=== PATIENT | male | born 1935 | race Caucasian/White ===

== ENCOUNTER 2017-08-24 18:26 | Inpatient (IN) | payer OTHER ==
[~2017-08-24] VITALS: Ht 177.8 cm; Wt 83.3 kg
[~2017-08-24 18:26] MED LIST: DONE1TAB26 PO; DXY100 PO; HYDC25 PO; TIMO0.2528 OP; [UNRECOGNIZED DRUG - CODE] OPB
[2017-08-24] MEDS ORDERED: ALBUT/IPRATROP 3MG/0.5MG NEB 3 ML VIAL INH STA (18:44)
[2017-08-24] MEDS ORDERED: SODIUM CHLORIDE 0.9% 1000ML 2,000 ML IV STA (18:44)
[2017-08-24] MEDS ORDERED: CEFTRIAXONE SOD INJ 1 GM ADDVIAL IV STA (18:44)
[2017-08-24 19:13] LABS: BASO % 0.2 %; BASO ABS # 0.03 K/uL (0-0.2); EOS % 0.1 %; EOS ABS # 0.02 K/uL (0-0.5); HEMATOCRIT 44.3 % (42-52); HEMOGLOBIN 15.4 g/dL (14.0-18.0); IG# 0.07 K/uL (0.00-0.02); LYMPH % 7.9 %; LYMPH ABS # 1.22 K/uL (1.2-3.4); MEAN CELL VOLUME 89.1 fL (80-100); MEAN CORPUSCULAR HGB CONC 34.8 g/dl (32-36); MEAN PLATELET VOLUME 11.2 fL (7.4-10.4); MONO % 15.1 %; MONO ABS # 2.34 K/uL (0.11-0.59); NEUT % 76.2 %; NEUT ABS # 11.81 K/uL (1.4-6.5); PLATELET COUNT 121 K/uL (130-400); RED CELL DISTRIBUTION WIDTH CV 13.8 % (11.5-14.5); RED CELL DISTRIBUTION WIDTH SD 44.9 fL (36.4-46.3); WHITE BLOOD COUNT 15.49 K/uL (4.8-10.8)
[2017-08-24] MEDS ORDERED: SODIUM CHLORIDE 0.9% 500ML 500 ML IV STA (19:13)
--- NOTE | 2017-08-24 19:14 | DIAGNOSTIC IMAGING REPORT ---
CHEST ONE VIEW PORTABLE HISTORY: 82 years-old Male Evaluate Fever/Sepsis acute fever with sepsis COMPARISON: Chest radiograph 07/14/2014 TECHNIQUE: Portable AP view of the chest FINDINGS: Cardiac silhouette is mildly enlarged. Atherosclerosis of the aorta. Mild pulmonary vascular congestion with trace fluid layering along the right minor fissure. Trace right pleural effusion with hazy subsegmental left basilar opacities. No pneumothorax. Lungs are mildly hypoinflated with right hemidiaphragmatic elevation. Degenerative changes are seen within the shoulders and spine. IMPRESSION: 1. Cardiomegaly with mild pulmonary vascular congestion and trace right pleural effusion. 2. Subsegmental left basilar alveolar opacities suggest atelectasis or pneumonia. The above report was generated using voice recognition software. It may contain grammatical, syntax or spelling errors. Electronically signed by: Mike Guillen M.D. 08/24/2017 7:12 PM Dictated Date/Time: 08/24/2017 7:10 PM
[2017-08-24 19:15] LABS: PTT PATIENT 32.2 SECONDS (21.0-31.0)
[2017-08-24 19:36] LABS: CALCIUM 8.7 mg/dl (8.5-10.1); CREATININE 1.45 mg/dl (0.60-1.40); POTASSIUM 4.1 mmol/L (3.5-5.1)
[2017-08-24 19:42] LABS: CKMB 2.3 ng/ml (0.5-3.6); TOTAL PROTEIN 6.7 gm/dl (6.4-8.2)
[2017-08-24] MEDS ORDERED: CHOL100027 PO (19:56)
[2017-08-24] MEDS ORDERED: SIMV20TA5 PO (19:56)
[2017-08-24] MEDS ORDERED: ASPI81TA28 PO (19:56)
[2017-08-24] MEDS ORDERED: SAW160CA5 PO (19:56)
[2017-08-24] MEDS ORDERED: MULT-513 PO (19:56)
[2017-08-24] MEDS ORDERED: MISCCAP3 PO (19:56)
[2017-08-24] MEDS ORDERED: LISI-729 PO (19:56)
[2017-08-24 19:57] LABS: INFLUENZA B ANTIGEN Neg for Influ B (NEG)
[2017-08-24] MEDS ORDERED: XLTOPS OPB (20:10)
[2017-08-24] MEDS ORDERED: HYDR12.56 PO (20:10)
[2017-08-24] MEDS ORDERED: TMPOPS2510 OPB (20:10)
[2017-08-24] MEDS ORDERED: MEMA1TAB3 PO (20:10)
[2017-08-24] MEDS ORDERED: ARC10 PO (20:53)
[2017-08-24] MEDS ORDERED: OMEG10007 PO (20:53)
[2017-08-24] MEDS ORDERED: ACETAMINOPHEN 325 MG TAB PO PRN (21:30)
[2017-08-24] MEDS ORDERED: VANCOMYCIN IV 1,000 MG in SODIUM CHLORIDE 0.9% 250ML 250 ML IV STA ×2 (21:30→21:34)
[2017-08-24] MEDS ORDERED: VANCOMYCIN CONSULT ACTIVE PRN ×2 (21:30→21:45)
--- NOTE | 2017-08-24 21:34 | EMERGENCY ROOM VISIT NOTE ---
History Report prepared by Kg: Sirena Howell Under the Supervision of: Aretha GallagherO. First contact with patient: 18:30 Stated Complaint: SYNCOPE, History of Present Illness The patient is an 82 year old male who presents to the Emergency Room with complaints of persistent general fever of 101 Fahrenheit since this evening. Per nursing staff, the patient was found by family members in the bathroom. They report the patient did not know how long he was in the bathroom for. His blood glucose was 286. The patient has a cough and is weak. The patient has a history of dementia. HPI is limited secondary to dementia. Source of History: nursing staff History Limited By: dementia Onset: since this evening Position: other (general) Symptom Intensity: 101 Fahrenheit Quality: other (fever) Timing: other (persistent) Associated Symptoms: + cough, + weakness Review of Systems ROS is limited secondary to dementia. Past Medical & Surgical Medical Problems: (1) Delirium (2) Fall (3) Fall (4) Generalized weakness (5) PNA (pneumonia) (6) Sepsis (7) Sinus infection (8) SIRS (systemic inflammatory response syndrome) Family History Cancer Social History Smoking Status: Never Smoker Alcohol Use: none Drug Use: none Marital Status: Housing Status: lives with family Occupation Status: retired Current/Historical Medications Scheduled Aspirin (Aspirin Ec), 81 MG PO DAILY Cholecalciferol (Vitamin D 1000 Unit), 1,000 INTER.UNIT PO DAILY Donepezil HCl (Donepezil HCl), 10 MG PO DAILY Fish Oil ([place]-3), 1 CAP PO DAILY Hydrochlorothiazide (Hctz), 12.5 MG PO DAILY Latanoprost (Latanoprost), 1 DROP OPB HS Lisinopril (Zestril), 5 MG PO DAILY Memantine HCl (Memantine HCl), 5 MG PO BID Misc Natural Products (Pumpkin Seed Oil), 1 CAP PO DAILY Multivitamins/Minerals (Mvi With Minerals), 1 TAB PO DAILY Saw [place] ([place]ren[place] Repens) (Saw [place]), 1 TABS PO DAILY Simvastatin (Zocor), 20 MG PO QPM Timolol Maleate (Timolol Maleate), 1 DROP OPB BID Allergies Coded Allergies: Sulfamethoxazole w/Trimethoprim (Verified Allergy, Mild, 0, 07/14/14) sick, weakness Physical Exam Vital Signs Date Time Temp Pulse Resp B/P (MAP) Pulse Ox O2 Delivery O2 Flow Rate FiO2 08/24/17 21:00 98 24 98/74 94 Nasal Cannula 2.0 08/24/17 20:30 37.6 103 24 134/93 94 Nasal Cannula 2.0 08/24/17 20:17 112 08/24/17 20:00 105 24 102/59 94 Nasal Cannula 2.0 08/24/17 19:30 38.3 115 24 91/60 95 Nasal Cannula 2.0 08/24/17 19:00 121 24 87/62 96 Nasal Cannula 2.0 08/24/17 18:38 93 Nasal Cannula 3.0 08/24/17 18:38 93 Nasal Cannula 3.0 08/24/17 18:33 38.3 122 20 151/109 88 Room Air Physical Exam CONSTITUTIONAL/VITAL SIGNS: Reviewed / noted above. GENERAL: Non-toxic in appearance. INTEGUMENTARY: Warm, dry, and [place]. HEAD: Normocephalic. EYES: without scleral icterus or trauma. ENT/OROPHARYNX: clear and moist. LYMPHADENOPATHY/NECK: Is supple without lymphadenopathy or meningismus. RESPIRATORY: Diminished lung sounds in right base. CARDIOVASCULAR: Tachycardic rate and regular rhythm. GI/ABDOMEN: Soft and nontender. No organomegaly or pulsatile mass. No rebound or guarding. Normal bowel sounds. EXTREMITIES: Warm and well perfused. BACK: No CVA tenderness. NEUROLOGICAL: Intact without focal deficits. PSYCHIATRIC: normal affect. MUSCULOSKELETAL: Normally developed with good muscle tone. Medical Decision & Procedures ER Provider Diagnostic Interpretation: Radiology results as stated below per my review and radiologist interpretation: CHEST ONE VIEW PORTABLE HISTORY: 82 years-old Male Evaluate Fever/Sepsis acute fever with sepsis COMPARISON: Chest radiograph 07/14/2014 TECHNIQUE: Portable AP view of the chest FINDINGS: Cardiac silhouette is mildly enlarged. Atherosclerosis of the aorta. Mild pulmonary vascular congestion with trace fluid layering along the right minor fissure. Trace right pleural effusion with hazy subsegmental left basilar opacities. No pneumothorax. Lungs are mildly hypoinflated with right hemidiaphragmatic elevation. Degenerative changes are seen within the shoulders and spine. IMPRESSION: 1. Cardiomegaly with mild pulmonary vascular congestion and trace right pleural effusion. 2. Subsegmental left basilar alveolar opacities suggest atelectasis or pneumonia. The above report was generated using voice recognition software. It may contain grammatical, syntax or spelling errors. Electronically signed by: Mike Guillen M.D. 08/24/2017 7:12 PM Dictated Date/Time: 08/24/2017 7:10 PM Laboratory Results 08/24/17 17:45 Red Blood Count 4.97, Mean Corpuscular Volume 89.1, Mean Corpuscular Hemoglobin 31.0, Mean Corpuscular Hemoglobin Concent 34.8, Mean Platelet Volume 11.2, Neutrophils (%) (Auto) 76.2, Lymphocytes (%) (Auto) 7.9, Monocytes (%) (Auto) 15.1, Eosinophils (%) (Auto) 0.1, Basophils (%) (Auto) 0.2, Neutrophils # (Auto ) 11.81, Lymphocytes # (Auto) 1.22, Monocytes # (Auto) 2.34, Eosinophils # (Auto ) 0.02, Basophils # (Auto) 0.03 08/24/17 17:45 Test 08/24/17 17:45 08/24/17 18:56 08/24/17 19:00 08/24/17 20:30 White Blood Count 15.49 K/uL (4.8-10.8) Red Blood Count 4.97 M/uL (4.7-6.1) Hemoglobin 15.4 g/dL (14.0-18.0) Hematocrit 44.3 % (42-52) Mean Corpuscular Volume 89.1 fL (80-100) Mean Corpuscular Hemoglobin 31.0 pg (25-34) Mean Corpuscular Hemoglobin Concent 34.8 g/dl (32-36) Platelet Count 121 K/uL (130-400) Mean Platelet Volume 11.2 fL (7.4-10.4) Neutrophils (%) (Auto) 76.2 % Lymphocytes (%) (Auto) 7.9 % Monocytes (%) (Auto) 15.1 % Eosinophils (%) (Auto) 0.1 % Basophils (%) (Auto) 0.2 % Neutrophils # (Auto) 11.81 K/uL (1.4-6.5) Lymphocytes # (Auto) 1.22 K/uL (1.2-3.4) Monocytes # (Auto) 2.34 K/uL (0.11-0.59) Eosinophils # (Auto) 0.02 K/uL (0-0.5) Basophils # (Auto) 0.03 K/uL (0-0.2) RDW Standard Deviation 44.9 fL (36.4-46.3) RDW Coefficient of Variation 13.8 % (11.5-14.5) Immature Granulocyte % (Auto) 0.5 % Immature Granulocyte # (Auto) 0.07 K/uL (0.00-0.02) Prothrombin Time 11.0 SECONDS (9.0-12.0) Prothromb Time International Ratio 1.0 (0.9-1.1) Activated Partial Thromboplast Time 32.2 SECONDS (21.0-31.0) Partial Thromboplastin Ratio 1.2 Anion Gap 6.0 mmol/L (3-11) Est Creatinine Clear Calc Drug Dose 39.9 ml/min Estimated GFR () 51.2 Estimated GFR (Non- 44.2 BUN/Creatinine Ratio 15.2 (10-20) Calcium Level 8.7 mg/dl (8.5-10.1) Total Bilirubin 1.1 mg/dl (0.2-1) Direct Bilirubin 0.2 mg/dl (0-0.2) Aspartate Amino Transf (AST/SGOT) 28 U/L (15-37) Alanine Aminotransferase (ALT/SGPT) 30 U/L (12-78) Alkaline Phosphatase 75 U/L (45-117) Total Creatine Kinase 238 U/L (39-308) Creatine Kinase MB 2.3 ng/ml (0.5-3.6) Creatine Kinase MB Ratio 1.0 (0-3.0) Troponin I 0.015 ng/ml (0-0.045) Total Protein 6.7 gm/dl (6.4-8.2) Albumin 3.0 gm/dl (3.4-5.0) Lipase 132 U/L (73-393) Bedside Lactic Acid Venous 2.34 mmol/L (0.90-1.70) Influenza Type A Antigen Neg for Influ A (NEG) Influenza Type B Antigen Neg for Influ B (NEG) Urine Color DK YELLOW Urine Appearance CLEAR (CLEAR) Urine pH 5.0 (4.5-7.5) Urine Specific [place] 1.021 (1.000-1.030) Urine Protein 1+ (NEG) Urine Glucose (UA) NEG (NEG) Urine Ketones TRACE (NEG) Urine Occult Blood NEG (NEG) Urine Nitrite NEG (NEG) Urine Bilirubin NEG (NEG) Urine Urobilinogen NEG (NEG) Urine Leukocyte Esterase NEG (NEG) Urine WBC (Auto) 1-5 /hpf (0-5) Urine RBC (Auto) 0-4 /hpf (0-4) Urine Hyaline Casts (Auto) 10-30 /lpf (0-5) Urine Epithelial Cells (Auto) 5-10 /lpf (0-5) Urine Bacteria (Auto) NEG (NEG) Urine Pathogenic Casts 0-3 GRANULAR CASTS /lpf (0) Test 08/24/17 20:53 08/24/17 21:29 Laboratory results as stated above per my review. Medications Administered Medications (Trade) Dose Ordered Sig/Bharat Route Start Time Stop Time Status Last Admin Dose Admin Sodium Chloride 2,000 ml @ 999 mls/hr Q2H1M STAT IV 08/24/17 18:44 08/24/17 20:44 DC 08/24/17 19:09 999 MLS/HR Albuterol/ Ipratropium (Duoneb) 3 ml NOW STAT INH 08/24/17 18:44 08/24/17 18:49 DC 08/24/17 19:09 3 ML Ceftriaxone Sodium (Rocephin Inj) 1 gm NOW STAT IV 08/24/17 18:44 08/24/17 18:49 DC 08/24/17 19:25 1 GM Sodium Chloride 500 ml @ 999 mls/hr Q31M STAT IV 08/24/17 19:13 08/24/17 19:43 DC 08/24/17 19:25 999 MLS/HR ECG Per My Interpretation Indication: weakness Rate (beats per minute): 122 Rhythm: other (accelerated junctional ) Findings: no ectopy, other (No ST elevation) ED Course 183: Previous medical records were reviewed. The patient was evaluated in room B8. A complete history and physical examination was performed. 1844: Ordered Rocephin 1 gm IV, DuoNeb 3 ml INH, and Sodium Chloride 2,000 ml @ 999 mls/hr IV 3: Ordered Sodium Chloride 500 ml @ 999 mls/hr IV 2019: I spoke with Jade Garcia [facility]. We discussed the patient' s case. [facility]. 2026: I reassessed the patient at this time. I discussed the results and treatment plan with the patient and his family. I answered all pertaining questions that they had. They expressed understanding and verbalized agreement. The patient will be further evaluated. 2133: Vancomycin 1gm IV. Medical Decision Differentials include: Acute coronary syndrome, myocardial infarction, CVA, TIA , anemia, infection, pneumonia, UTI, pyelonephritis, poor nutrition, dehydration , electrolyte disturbance, and hypoglycemia. This is a 82-year-old male who presents to the ED with a chief complaint of a fever and weakness. The patient was found in the bathroom on the floor by the family and was transported here by EMS. The patient has some dementia and is a poor historian. The patient has recently had a cough. His temperature here was 38.3. His heart rate was 126. He was saturating 88-90% on room air. He does not use home oxygen. His blood pressure was mildly elevated. His physical exam revealed some diminished breath sounds on the right compared to the left. His exam also shows his tachycardia. Chest x-ray reveals left base pneumonia. EKG shows an accelerated junctional rhythm at a rate 122. No ST elevations. White blood cell count was 15.49. The BUN and creatinine are slightly elevated. Lactic acid is slightly elevated. Flu swab was negative. The patient was started on IV antibiotics. The patient was given 30 cc/kg of IV fluids. The patient will be seen by the hospitalist service for further inpatient evaluation and care. Medication Reconcilliation Current Medication List: was personally reviewed by me Blood Pressure Screening Patient's blood pressure: Low blood pressure monitored by hospitalist Consults Time Called: 2018 Consulting Physician: Jade Garcia [facility] I spoke with Jade Garcia. We discussed the patient's case. The patient will be [facility] for further management. Impression Primary Impression: PNA (pneumonia) Additional Impression: Sepsis Scribe Attestation The scribe's documentation has been prepared under my direction and personally reviewed by me in its entirety. I confirm that the note above accurately reflects all work, treatment, procedures, and medical decision making performed by me. Departure Information Dispostion Being Evaluated By Hospitalist Referrals Fabiano Gilbert MD (PCP) Problem Qualifiers
--- NOTE | 2017-08-24 21:44 | History and Physical ---
History & Physical Date & Time of Service: August 24, 2017 at 21:44 Chief Complaint: Fall Primary Care Physician: Adolfo Grider M.D. History of Present Illness Source: patient, clinic records, hospital records Patient is an 82-year-old male with a PMH of mixed Alzheimer's/vascular dementia , HTN, HLD, CKD III and h/o MRSA infections who presents after a fall at home. History obtained primarily from at bedside. Patient has had a cough and congestion since the beginning of July. Was seen in clinic on the and was diagnosed with complicated bronchitis and sent home with albuterol inhaler, prednisone taper and a 10 day course of doxycycline. Patient completed steroid and antibiotic last week and was feeling better. Per , patient has seemed fatigued the past 2 days and continued to have a mildly productive cough and generalized weakness. While patient was using the bathroom this afternoon, heard a loud thump and found patient lying on his side next to the toilet. Patient does not remember this incident. EMS was called and patient was brought to ED for further evaluation. In ED, patient found to have a fever of 101. Initially hypertensive at 181/109 and then hypotensive with SBP in the high 80s. Tachycardic at 122. Hypoxic ~88 -90% on room air. Does not require oxygen at home. Leukocytosis of 15.49 and lactic acid mildly elevated at 2.3. Aggressive IV fluid resuscitation administered. Chest x-ray with evidence of left lobe pneumonia versus atelectasis. Patient denies fever, chills, lightheadedness, dizziness, confusion, visual changes, chest pain, S OB, abdominal pain, nausea, pain, bowel or bladder changes or LE swelling. Past Medical/Surgical History Medical Problems: (1) Alzheimer's dementia Status: Chronic (2) Central sleep apnea Status: Chronic (3) CKD (chronic kidney disease) stage 3, GFR 30-59 ml/min Status: Chronic (4) Hyperlipidemia Status: Chronic (5) Hypertension Status: Chronic (6) Non Hodgkin's lymphoma Permanent Comment: s/p chemo in 2007 Status: Chronic (7) Vascular dementia Status: Chronic Surgical Problems: (1) S/P TURP (status post transurethral resection of prostate) Status: Resolved Social History Problems: (1) Delirium Status: Resolved Family History Cancer Social History Smoking Status: Never Smoker Alcohol Use: occasionally Drug Use: none Marital Status: Housing status: lives with significant other Occupational Status: retired Allergies Coded Allergies: Sulfamethoxazole w/Trimethoprim (Verified Allergy, Mild, 0, 07/14/14) sick, weakness Home Medications Scheduled Aspirin (Aspirin Ec), 81 MG PO DAILY Donepezil HCl (Donepezil HCl), 10 MG PO DAILY Fish Oil ([place]-3), 1 CAP PO DAILY Hydrochlorothiazide (Hctz), 12.5 MG PO DAILY Latanoprost (Latanoprost), 1 DROP OPB HS Lisinopril (Zestril), 5 MG PO DAILY Memantine HCl (Memantine HCl), 5 MG PO BID Misc Natural Products (Pumpkin Seed Oil), 1 CAP PO DAILY Multivitamins/Minerals (Mvi With Minerals), 1 TAB PO DAILY Saw [place] (Seren[place] Repens) (S[place]), 1 TABS PO DAILY Simvastatin (Zocor), 20 MG PO QPM Timolol Maleate (Timolol Maleate), 1 DROP OPB BID Review of Systems Ten systems reviewed and negative except as noted in the HPI. Physical Exam Vital Signs Date Time Temp Pulse Resp B/P (MAP) Pulse Ox O2 Delivery O2 Flow Rate FiO2 08/24/17 21:00 98 24 98/74 94 Nasal Cannula 2.0 08/24/17 20:30 37.6 103 24 134/93 94 Nasal Cannula 2.0 08/24/17 20:17 112 08/24/17 20:00 105 24 102/59 94 Nasal Cannula 2.0 08/24/17 19:30 38.3 115 24 91/60 95 Nasal Cannula 2.0 08/24/17 19:00 121 24 87/62 96 Nasal Cannula 2.0 08/24/17 18:38 93 Nasal Cannula 3.0 08/24/17 18:38 93 Nasal Cannula 3.0 08/24/17 18:33 38.3 122 20 151/109 88 Room Air General Appearance: WD/WN, no apparent distress, + pertinent finding (Non- toxic appearing ) Head: normocephalic, atraumatic Eyes: normal inspection, PERRL, sclerae normal ENT: normal ENT inspection, hearing grossly normal, pharynx normal (moist mucous membranes ) Neck: supple, thyroid normal, trachea midline Respiratory/Chest: chest non-tender, lungs clear, no respiratory distress, no accessory muscle use, + decreased breath sounds Cardiovascular: no murmur, normal peripheral pulses, + tachycardia Abdomen/GI: non tender, soft, no organomegaly Back: normal inspection Extremities/Musculoskelatal: normal inspection, no calf tenderness, no pedal edema Neurologic/Psych: no motor/sensory deficits, alert, normal mood/affect, oriented x 3 Skin: normal color, warm/dry Diagnostics Laboratory Results Results Past 24 Hours Test 08/24/17 17:45 08/24/17 18:56 08/24/17 19:00 08/24/17 19:20 Range/Units White Blood Count 15.49 4.8-10.8 K/uL Red Blood Count 4.97 4.7-6.1 M/uL Hemoglobin 15.4 14.0-18.0 g/dL Hematocrit 44.3 42-52 % Mean Corpuscular Volume 89.1 80-100 fL Mean Corpuscular Hemoglobin 31.0 25-34 pg Mean Corpuscular Hemoglobin Concent 34.8 32-36 g/dl Platelet Count 121 130-400 K/uL Mean Platelet Volume 11.2 7.4-10.4 fL Neutrophils (%) (Auto) 76.2 % Lymphocytes (%) (Auto) 7.9 % Monocytes (%) (Auto) 15.1 % Eosinophils (%) (Auto) 0.1 % Basophils (%) (Auto) 0.2 % Neutrophils # (Auto) 11.81 1.4-6.5 K/uL Lymphocytes # (Auto) 1.22 1.2-3.4 K/uL Monocytes # (Auto) 2.34 0.11-0.59 K/uL Eosinophils # (Auto) 0.02 0-0.5 K/uL Basophils # (Auto) 0.03 0-0.2 K/uL RDW Standard Deviation 44.9 36.4-46.3 fL RDW Coefficient of Variation 13.8 11.5-14.5 % Immature Granulocyte % (Auto) 0.5 % Immature Granulocyte # (Auto) 0.07 0.00-0.02 K/uL Prothrombin Time 11.0 9.0-12.0 SECONDS Prothromb Time International Ratio 1.0 0.9-1.1 Activated Partial Thromboplast Time 32.2 21.0-31.0 SECONDS Partial Thromboplastin Ratio 1.2 Sodium Level 133 136-145 mmol/L Potassium Level 4.1 3.5-5.1 mmol/L Chloride Level 101 98-107 mmol/L Carbon Dioxide Level 26 21-32 mmol/L Anion Gap 6.0 3-11 mmol/L Blood Urea Nitrogen 22 7-18 mg/dl Creatinine 1.45 0.60-1.40 mg/dl Est Creatinine Clear Calc Drug Dose 39.9 ml/min Estimated GFR () 51.2 Estimated GFR (Non- 44.2 BUN/Creatinine Ratio 15.2 10-20 Random Glucose 172 70-99 mg/dl Calcium Level 8.7 8.5-10.1 mg/dl Total Bilirubin 1.1 0.2-1 mg/dl Direct Bilirubin 0.2 0-0.2 mg/dl Aspartate Amino Transf (AST/SGOT) 28 15-37 U/L Alanine Aminotransferase (ALT/SGPT) 30 12-78 U/L Alkaline Phosphatase 75 45-117 U/L Total Creatine Kinase 238 39-308 U/L Creatine Kinase MB 2.3 0.5-3.6 ng/ml Creatine Kinase MB Ratio 1.0 0-3.0 Troponin I 0.015 0-0.045 ng/ml Total Protein 6.7 6.4-8.2 gm/dl Albumin 3.0 3.4-5.0 gm/dl Lipase 132 73-393 U/L Bedside Lactic Acid Venous 2.34 0.90-1.70 mmol/L Influenza Type A Antigen Neg for Influ A NEG Influenza Type B Antigen Neg for Influ B NEG Lactic Acid Level 2.3 0.4-2.0 mmol/L Test 08/24/17 20:30 08/24/17 20:53 08/24/17 21:29 Range/Units Urine Color DK YELLOW Urine Appearance CLEAR CLEAR Urine pH 5.0 4.5-7.5 Urine Specific [place] 1.021 1.000-1.030 Urine Protein 1+ NEG Urine Glucose (UA) NEG NEG Urine Ketones TRACE NEG Urine Occult Blood NEG NEG Urine Nitrite NEG NEG Urine Bilirubin NEG NEG Urine Urobilinogen NEG NEG Urine Leukocyte Esterase NEG NEG Urine WBC (Auto) 1-5 0-5 /hpf Urine RBC (Auto) 0-4 0-4 /hpf Urine Hyaline Casts (Auto) 10-30 0-5 /lpf Urine Epithelial Cells (Auto) 5-10 0-5 /lpf Urine Bacteria (Auto) NEG NEG Urine Pathogenic Casts 0-3 GRANULAR CASTS 0 /lpf Microbiology Results 08/24/17 Blood Culture, Received Pending 08/24/17 Blood Culture, Received Pending Diagnostic Radiology CXR: IMPRESSION: 1. Cardiomegaly with mild pulmonary vascular congestion and trace right pleural effusion. 2. Subsegmental left basilar alveolar opacities suggest atelectasis or pneumonia. EKG Accelerated Junctional rhythm with retrograde conduction Nonspecific ST and T wave abnormality Impression Assessment and Plan Patient is an 82-year-old male with a PMH of mixed Alzheimer's/vascular dementia , HTN, HLD, CKD III and h/o MRSA who presents after a fall at home. Sepsis 2/2 PNA: -Non-toxic appearing but meets SIRs criteria plus known source of infection -Febrile to 101, initially hypertensive at 181/109 and then hypotensive with SBP in the high 80s, HR ~ 122 -Hypoxic ~88-90% on room air. Does not require oxygen at home. Saturating appropriately on 2L NC -Leukocytosis of 15.49 -Lactic acid mildly elevated at 2.3 but repeat is normal at 1.6 -Normal procalcitonin -Aggressive IV fluid resuscitation administered -CXR with evidence of left lobe pneumonia versus atelectasis -Given 1 dose of rocephin and vanco in ED -Continue antibiotic coverage with zosyn -Blood cultures pending Unwitnessed fall: -Generalized weakness in setting of infection -Normally ambulates without assistance -No lightheadedness, near-syncope, chest pain -Fall precautions -Consider PT/OT eval HTN: -Hypotensive 2/2 infection -Continue IV fluids -Hold lisinopril Alzheimer's/vascular dementia: -Alert and pleasantly confused -Cont Aricept, Namenda, baby aspirin Thrombocytopenia: -Platelets at 121 -Previously ranged from 102-177 -SCDs HLD: -Cont statin CKD III: -Cr of 1.45, GFR of 44 -Baseline ~1.2, GFR in mid 50s -Monitor BMP Non-Hodgkin's lymphoma: -Observation -Chemo in 2007 H/o MRSA: - reports 2 remote cases of MRSA skin infections DVT Ppx: SCDs Code status: FULL PCP: Cheo Dispo: Admit to telemetry. Discharge planning ordered. Patient seen in collaboration with Dr. Joseph. Please see addendum. Attending Addendum Pt was seen and examined. Agreed with Rupa HYLTON, exam, assessment and plan. 82- year-old male with a PMH of mixed Alzheimer's/vascular dementia, HTN, HLD, CKD III and h/o MRSA infections was brought to the ER after a fall at home. Pt was seen about 2 weeks ago at PCP office for bronchitis. She was given doxycycline and prednisone and completed the course. For the last 2 days pt have been having a productive cough associated with generalized weakness. In the ER pt meets sepsis criteria with elevated lactic acid, tachycardia, elevated WBC and RR. CXR done in the ER showed subsegmental left basilar alveolar opacities. Received IVF in the ER and IV abx with Rocephine and Vanco. His BP dropped in the 90's systolic. We will start on Zosyn IV and if mrsa screen positive, will continue vanco. Gentle hydration for now since CXR showed mild pulmonary vascular congestion. Repeat lactic acid and CXR. Continue monitor closely. MD Opal Resuscitation Status VTE Prophylaxis Will order VTE Prophylaxis: Yes
[2017-08-24] MEDS ORDERED: VANCOMYCIN IV 1,750 MG in SODIUM CHLORIDE 0.9% 500ML 500 ML IV SCH (22:00)
[2017-08-24 22:29] LABS: INFLUENZA A PCR Neg for Influ A (NEG); INFLUENZA B PCR Neg for Influ B (NEG)
[2017-08-24 22:46] VITALS: BP 101/57; PULSE 97; TEMP 36.9; Ht 177.8 cm; Wt 83.3 kg
[2017-08-24] MEDS ORDERED: PIPERACILL/TAZOBAC CONSULT ACTIVE PRN (23:00)
[2017-08-24] MEDS ORDERED: SODIUM CHLORIDE 0.9% 1000ML 1,000 ML IV SCH (23:00)
[2017-08-24] MEDS ORDERED: PIPERACILL/TAZOBAC IV 3.375 GM in DEXTROSE 5% 100ML 100 ML IV ONE (23:00)
[2017-08-24 23:23] VITALS: PULSE 103; O2SAT 94
[2017-08-25] VITALS (8 sets, daily range): BP systolic 97–161; BP diastolic 64–84; PULSE 63–101; TEMP 36.4–37.4; O2SAT 91–98
[2017-08-25 04:25] LABS: HEMATOCRIT 38.1 % (42-52); HEMOGLOBIN 12.7 g/dL (14.0-18.0); MEAN CELL VOLUME 90.1 fL (80-100); MEAN CORPUSCULAR HGB CONC 33.3 g/dl (32-36); MEAN PLATELET VOLUME 10.4 fL (7.4-10.4); PLATELET COUNT 102 K/uL (130-400); RED CELL DISTRIBUTION WIDTH CV 13.8 % (11.5-14.5); RED CELL DISTRIBUTION WIDTH SD 45.2 fL (36.4-46.3); WHITE BLOOD COUNT 11.06 K/uL (4.8-10.8)
[2017-08-25 04:44] LABS: CALCIUM 7.7 mg/dl (8.5-10.1); CREATININE 1.18 mg/dl (0.60-1.40); POTASSIUM 3.9 mmol/L (3.5-5.1)
[2017-08-25] MEDS ORDERED: HEPARIN SOD 5000 UNIT/0.5 ML CARP SQ SCH (06:00)
[2017-08-25] MEDS: PIPERACILL/TAZOBAC IV 3.375 GM in DEXTROSE 5% 100ML 100 ML IV SCH ×3 (06:18→21:54)
[2017-08-25] MEDS ORDERED: CALCIUM GLUCONATE 10% 1,000 MG in SODIUM CHLORIDE 0.9% 50ML 50 ML IV STA (06:21)
--- NOTE | 2017-08-25 08:12 | DIAGNOSTIC IMAGING REPORT ---
CHEST ONE VIEW PORTABLE CLINICAL HISTORY: follow up x ray for pneumonia or fluid overload dyspnea COMPARISON STUDY: 08/24/2017 FINDINGS: Mild improvement from the prior exam. Findings of mild congestive failure persist. Infiltrative process left base is slightly improved. Infiltrative changes right base are stable. IMPRESSION: 1. Mild improvement in the patient's congestive failure. 2. Mild improvement of a left basilar infiltrative process. The above report was generated using voice recognition software. It may contain grammatical, syntax or spelling errors. Electronically signed by: Cliff Bond M.D. 08/25/2017 8:10 AM Dictated Date/Time: 08/25/2017 8:09 AM
[2017-08-25] MEDS: TIMOLOL MALEATE 0.25% OP SOLN 5 ML BTL OPB SCH ×2 (08:25→19:54)
[2017-08-25] MEDS: DONEPEZIL HCL 10 MG TAB PO SCH (08:25)
[2017-08-25] MEDS: ASPIRIN 81 MG ECTAB PO SCH (08:25)
[2017-08-25] MEDS: MEMANTINE 5 MG TAB PO SCH ×2 (08:26→19:54)
--- NOTE | 2017-08-25 14:34 | Progress Note ---
Internal Med Progress Note Date of Service: August 25, 2017. Provider Documentation: SUBJECTIVE: Patient seen and examined in bedside. Denies acute pain. Oriented to person and place but not to time OBJECTIVE: Exam: General- no acute distress Eyes- EOMI Neck- no JVD Lungs-breathing on room air, fair air entry, rhonchi present Heart - regular rate Abdomen- soft, nontender, + bowel sounds Extremities- no edema Neuro- awake, alert, Oriented to person and place but not to time ASSESSMENT & PLAN: Patient is an 82-year-old male with a PMH of mixed Alzheimer's/vascular dementia , HTN, HLD, CKD III and h/o MRSA who presents after a fall at home. admission CXR 1. Cardiomegaly with mild pulmonary vascular congestion and trace right pleural effusion. 2. Subsegmental left basilar alveolar opacities suggest atelectasis or pneumonia. follow up CXR 1. Mild improvement in the patient's congestive failure. 2. Mild improvement of a left basilar infiltrative process. Sepsis secondary to pneumonia -In the ER pt meets sepsis criteria with elevated lactic acid, tachycardia, elevated WBC and RR. CXR done in the ER showed subsegmental left basilar alveolar opacities. Received IVF in the ER and IV abx with Rocephine and Vanco. His BP dropped in the 90's systolic. Was started on Zosyn IV. MRSA screen negative and so Vancomycin was stopped -Blood cultures pending, sputum culture has been ordered to be collected but patient has dry cough -Currently on Zosyn, continue Zosyn for now Hypertension history -was Hypotensive secondary infection -Blood pressure Improved after IV fluids and antibiotics -Hold lisinopril for now Unwitnessed fall: -patient's reported that he was in bathroom when he fell down at home and was conscious when she found him -PT/OT evaluation Alzheimer's/vascular dementia: -Cont Aricept, Namenda, baby aspirin HLD: -Cont statin CKD III with DAVID resolving -monitor GFR Thrombocytopenia: -monitor platelets, avoid pharmacological anticoagulation Non-Hodgkin's lymphoma: -Chemo in 2007 DVT Ppx: SCDs Code status: FULL Vital Signs: Date Time Temp Pulse Resp B/P (MAP) Pulse Ox O2 Delivery O2 Flow Rate FiO2 08/25/17 12:00 Nasal Cannula 2.0 08/25/17 08:00 91 Nasal Cannula 2.0 08/25/17 07:20 99 94 3.0 08/25/17 04:00 36.4 63 21 121/64 (83) 96 CPAP 2.0 08/25/17 04:00 Nasal Cannula 3.0 CPAP 08/25/17 00:01 101 21 97/74 (82) 93 08/24/17 23:59 Nasal Cannula 3.0 CPAP 08/24/17 23:23 103 94 3.0 08/24/17 22:46 36.9 97 27 101/57 CPAP 08/24/17 21:30 98 24 93/78 93 Nasal Cannula 2.0 08/24/17 21:00 98 24 98/74 94 Nasal Cannula 2.0 08/24/17 20:30 37.6 103 24 134/93 94 Nasal Cannula 2.0 08/24/17 20:17 112 08/24/17 20:00 105 24 102/59 94 Nasal Cannula 2.0 08/24/17 19:30 38.3 115 24 91/60 95 Nasal Cannula 2.0 08/24/17 19:00 121 24 87/62 96 Nasal Cannula 2.0 08/24/17 18:38 93 Nasal Cannula 3.0 08/24/17 18:38 93 Nasal Cannula 3.0 08/24/17 18:33 38.3 122 20 151/109 88 Room Air Lab Results: Results Past 24 Hours Test 08/24/17 17:45 08/24/17 18:56 08/24/17 19:00 08/24/17 19:20 Range/Units White Blood Count 15.49 4.8-10.8 K/uL Red Blood Count 4.97 4.7-6.1 M/uL Hemoglobin 15.4 14.0-18.0 g/dL Hematocrit 44.3 42-52 % Mean Corpuscular Volume 89.1 80-100 fL Mean Corpuscular Hemoglobin 31.0 25-34 pg Mean Corpuscular Hemoglobin Concent 34.8 32-36 g/dl Platelet Count 121 130-400 K/uL Mean Platelet Volume 11.2 7.4-10.4 fL Neutrophils (%) (Auto) 76.2 % Lymphocytes (%) (Auto) 7.9 % Monocytes (%) (Auto) 15.1 % Eosinophils (%) (Auto) 0.1 % Basophils (%) (Auto) 0.2 % Neutrophils # (Auto) 11.81 1.4-6.5 K/uL Lymphocytes # (Auto) 1.22 1.2-3.4 K/uL Monocytes # (Auto) 2.34 0.11-0.59 K/uL Eosinophils # (Auto) 0.02 0-0.5 K/uL Basophils # (Auto) 0.03 0-0.2 K/uL RDW Standard Deviation 44.9 36.4-46.3 fL RDW Coefficient of Variation 13.8 11.5-14.5 % Immature Granulocyte % (Auto) 0.5 % Immature Granulocyte # (Auto) 0.07 0.00-0.02 K/uL Prothrombin Time 11.0 9.0-12.0 SECONDS Prothromb Time International Ratio 1.0 0.9-1.1 Activated Partial Thromboplast Time 32.2 21.0-31.0 SECONDS Partial Thromboplastin Ratio 1.2 Sodium Level 133 136-145 mmol/L Potassium Level 4.1 3.5-5.1 mmol/L Chloride Level 101 98-107 mmol/L Carbon Dioxide Level 26 21-32 mmol/L Anion Gap 6.0 3-11 mmol/L Blood Urea Nitrogen 22 7-18 mg/dl Creatinine 1.45 0.60-1.40 mg/dl Est Creatinine Clear Calc Drug Dose 39.9 ml/min Estimated GFR () 51.2 Estimated GFR (Non- 44.2 BUN/Creatinine Ratio 15.2 10-20 Random Glucose 172 70-99 mg/dl Calcium Level 8.7 8.5-10.1 mg/dl Total Bilirubin 1.1 0.2-1 mg/dl Direct Bilirubin 0.2 0-0.2 mg/dl Aspartate Amino Transf (AST/SGOT) 28 15-37 U/L Alanine Aminotransferase (ALT/SGPT) 30 12-78 U/L Alkaline Phosphatase 75 45-117 U/L Total Creatine Kinase 238 39-308 U/L Creatine Kinase MB 2.3 0.5-3.6 ng/ml Creatine Kinase MB Ratio 1.0 0-3.0 Troponin I 0.015 0-0.045 ng/ml Total Protein 6.7 6.4-8.2 gm/dl Albumin 3.0 3.4-5.0 gm/dl Lipase 132 73-393 U/L Bedside Lactic Acid Venous 2.34 0.90-1.70 mmol/L Influenza Type A Antigen Neg for Influ A NEG Influenza Type B Antigen Neg for Influ B NEG Lactic Acid Level 2.3 0.4-2.0 mmol/L Test 08/24/17 20:30 08/24/17 21:29 08/25/17 04:15 Range/Units Urine Color DK YELLOW Urine Appearance CLEAR CLEAR Urine pH 5.0 4.5-7.5 Urine Specific [place] 1.021 1.000-1.030 Urine Protein 1+ NEG Urine Glucose (UA) NEG NEG Urine Ketones TRACE NEG Urine Occult Blood NEG NEG Urine Nitrite NEG NEG Urine Bilirubin NEG NEG Urine Urobilinogen NEG NEG Urine Leukocyte Esterase NEG NEG Urine WBC (Auto) 1-5 0-5 /hpf Urine RBC (Auto) 0-4 0-4 /hpf Urine Hyaline Casts (Auto) 10-30 0-5 /lpf Urine Epithelial Cells (Auto) 5-10 0-5 /lpf Urine Bacteria (Auto) NEG NEG Urine Pathogenic Casts 0-3 GRANULAR CASTS 0 /lpf Lactic Acid Level 1.6 0.4-2.0 mmol/L Procalcitonin 0.24 0-0.5 ng/ml White Blood Count 11.06 4.8-10.8 K/uL Red Blood Count 4.23 4.7-6.1 M/uL Hemoglobin 12.7 14.0-18.0 g/dL Hematocrit 38.1 42-52 % Mean Corpuscular Volume 90.1 80-100 fL Mean Corpuscular Hemoglobin 30.0 25-34 pg Mean Corpuscular Hemoglobin Concent 33.3 32-36 g/dl RDW Standard Deviation 45.2 36.4-46.3 fL RDW Coefficient of Variation 13.8 11.5-14.5 % Platelet Count 102 130-400 K/uL Mean Platelet Volume 10.4 7.4-10.4 fL Sodium Level 139 136-145 mmol/L Potassium Level 3.9 3.5-5.1 mmol/L Chloride Level 109 98-107 mmol/L Carbon Dioxide Level 26 21-32 mmol/L Anion Gap 4.0 3-11 mmol/L Blood Urea Nitrogen 17 7-18 mg/dl Creatinine 1.18 0.60-1.40 mg/dl Est Creatinine Clear Calc Drug Dose 49.0 ml/min Estimated GFR () 65.7 Estimated GFR (Non- 56.7 BUN/Creatinine Ratio 14.4 10-20 Random Glucose 105 70-99 mg/dl Calcium Level 7.7 8.5-10.1 mg/dl Albumin 2.3 3.4-5.0 gm/dl Microbiology Results 08/24/17 Blood Culture, Received Pending 08/24/17 Blood Culture, Received Pending 08/24/17 MRSA DNA Surveillance Screen - Final, Complete Specimen Negative for MRSA by DNA Probe
[2017-08-25] MEDS: SIMVASTATIN 20 MG TAB PO SCH (19:54)
[2017-08-25] MEDS: LATANOPROST 0.005% OP SOLN 2.5 ML BTL OPB SCH (19:54)
[2017-08-25] MEDS ORDERED: NURSING VERBAL MED ORDER ONE (21:15)
[2017-08-25] MEDS ORDERED: COUGH DROP (SUGAR FREE) LOZ 24 LOZ/1 BOX LOZ PRN (21:30)
[2017-08-26 02:56] VITALS: BP 162/87; PULSE 70; TEMP 36.9; O2SAT 97
[2017-08-26 03:00] LABS: BASO % 0.3 %; BASO ABS # 0.03 K/uL (0-0.2); EOS % 1.4 %; EOS ABS # 0.12 K/uL (0-0.5); HEMATOCRIT 39.9 % (42-52); HEMOGLOBIN 13.9 g/dL (14.0-18.0); IG# 0.02 K/uL (0.00-0.02); LYMPH % 19.2 %; LYMPH ABS # 1.67 K/uL (1.2-3.4); MEAN CELL VOLUME 88.7 fL (80-100); MEAN CORPUSCULAR HEMOGLOBIN 30.9 pg (25-34); MEAN CORPUSCULAR HGB CONC 34.8 g/dl (32-36); MEAN PLATELET VOLUME 10.6 fL (7.4-10.4); MONO % 12.7 %; NEUT % 66.2 %; NEUT ABS # 5.74 K/uL (1.4-6.5); PLATELET COUNT 110 K/uL (130-400); RED CELL DISTRIBUTION WIDTH CV 13.8 % (11.5-14.5); WHITE BLOOD COUNT 8.68 K/uL (4.8-10.8)
[2017-08-26 03:17] LABS: ALBUMIN 2.6 gm/dl (3.4-5.0); CALCIUM 8.4 mg/dl (8.5-10.1); CREATININE 1.24 mg/dl (0.60-1.40); POTASSIUM 3.4 mmol/L (3.5-5.1)
[2017-08-26 03:20] LABS: TOTAL PROTEIN 6.1 gm/dl (6.4-8.2)
[2017-08-26] MEDS: PIPERACILL/TAZOBAC IV 3.375 GM in DEXTROSE 5% 100ML 100 ML IV SCH (05:48)
[2017-08-26 07:21] VITALS: BP 150/76; PULSE 68; TEMP 36.9; O2SAT 92
[2017-08-26] MEDS: DONEPEZIL HCL 10 MG TAB PO SCH (08:24)
[2017-08-26] MEDS: TIMOLOL MALEATE 0.25% OP SOLN 5 ML BTL OPB SCH ×2 (08:24→21:02)
[2017-08-26] MEDS: MEMANTINE 5 MG TAB PO SCH ×2 (08:25→21:01)
[2017-08-26] MEDS: ASPIRIN 81 MG ECTAB PO SCH (08:25)
[2017-08-26] MEDS: LISINOPRIL 5 MG TAB PO SCH (09:00)
[2017-08-26] MEDS: HYDROCHLOROTHIAZIDE 25 MG TAB PO SCH (09:00)
[2017-08-26] MEDS ORDERED: POTASSIUM CHLORIDE 20 MEQ TABCR PO STA (11:14)
[2017-08-26] MEDS ORDERED: AZITHROMYCIN 250 MG TAB PO ONE (11:30)
[2017-08-26 11:34] VITALS: BP 150/76; PULSE 68; TEMP 36.9; O2SAT 92
[2017-08-26 14:19] VITALS: BP 138/72; PULSE 68; TEMP 37.3; O2SAT 97
--- NOTE | 2017-08-26 15:41 | Progress Note ---
Internal Med Progress Note Date of Service: August 26, 2017. Provider Documentation: SUBJECTIVE: Patient seen and examined in bedside. Denies acute pain. OBJECTIVE: Exam: General- no acute distress Eyes- EOMI Neck- no JVD Lungs-breathing on room air, fair air entry, no wheezing Heart - regular rate Abdomen- soft, nontender, + bowel sounds Extremities- no edema Neuro- awake, alert, Oriented to person and place but not to time ASSESSMENT & PLAN: Patient is an 82-year-old male with a PMH of mixed Alzheimer's/vascular dementia , HTN, HLD, CKD III and h/o MRSA who presents after a fall at home. Sepsis secondary to pneumonia -In the ER pt meets sepsis criteria with elevated lactic acid, tachycardia, elevated WBC and RR. CXR done in the ER showed subsegmental left basilar alveolar opacities. Received IVF in the ER and IV abx with Rocephine and Vanco. His BP dropped in the 90's systolic. Was started on Zosyn IV. MRSA screen negative and so Vancomycin was stopped -admission CXR 08/24/17 1. Cardiomegaly with mild pulmonary vascular congestion and trace right pleural effusion. 2. Subsegmental left basilar alveolar opacities suggest atelectasis or pneumonia. -follow up CXR 08/25/17 1. Mild improvement in the patient's congestive failure. 2. Mild improvement of a left basilar infiltrative process. -Blood cultures from admission returned as negative, Zosyn stopped on 08/26/17. Patient transitioning to oral Augmentin and Azithromycin Hypertension history -was Hypotensive secondary infection -Blood pressure Improved after IV fluids and antibiotics -home dose Lisinopril started on 08/26/17 Unwitnessed fall: -patient's reported that he was in bathroom when he fell down at home and was conscious when she found him -PT/OT evaluations -PT evaluation on 08/26/17 "recommending pt go to SNF for further inpt rehab. pt is not safe to be home at this time due to high fall risk" Alzheimer's/vascular dementia: -Cont Aricept, Namenda, baby aspirin HLD: -Cont statin CKD III with DAVID resolving -monitor GFR Thrombocytopenia: -monitor platelets, avoid pharmacological anticoagulation Non-Hodgkin's lymphoma: -Chemo in 2007 Trial of void to be done today, have asked nurse to discontinue duvall DVT Ppx: SCDs Code status: FULL Disposition: Patient's respiratory status has improved and transitioned from IV antibiotics to oral antibiotics for pneumonia. Patient will need to be placed as he will need physical therapy. Have spoken with counseling case manager in regards to this discharge need. Remains in hospital until that can be arranged Vital Signs: Date Time Temp Pulse Resp B/P (MAP) Pulse Ox O2 Delivery O2 Flow Rate FiO2 08/26/17 14:19 37.3 68 20 138/72 (94) 97 08/26/17 12:00 CPAP 08/26/17 11:34 36.9 68 16 92 3.0 08/26/17 08:00 CPAP 08/26/17 07:21 36.9 68 16 150/76 (100) 92 Room Air 08/26/17 04:00 CPAP 08/26/17 02:56 36.9 70 19 162/87 (112) 97 CPAP 3.0 08/25/17 23:59 CPAP 08/25/17 23:16 37.3 66 20 161/84 (109) 96 CPAP 3.0 08/25/17 22:04 69 98 3.0 08/25/17 20:00 Room Air 08/25/17 19:42 37.4 75 19 146/69 (94) 94 Room Air 08/25/17 16:00 Room Air Lab Results: Results Past 24 Hours Test 08/26/17 02:50 08/26/17 02:51 Range/Units Urine Color RED Urine Appearance CLOUDY CLEAR Urine pH 5.0 4.5-7.5 Urine Specific [place] 1.021 1.000-1.030 Urine Protein 2+ NEG Urine Glucose (UA) NEG NEG Urine Ketones TRACE NEG Urine Occult Blood 3+ NEG Urine Nitrite NEG NEG Urine Bilirubin NEG NEG Urine Urobilinogen NEG NEG Urine Leukocyte Esterase TRACE NEG Urine WBC (Auto) 5-10 0-5 /hpf Urine RBC (Auto) >30 0-4 /hpf Urine Hyaline Casts (Auto) 1-5 0-5 /lpf Urine Epithelial Cells (Auto) 20-30 0-5 /lpf Urine Bacteria (Auto) NEG NEG White Blood Count 8.68 4.8-10.8 K/uL Red Blood Count 4.50 4.7-6.1 M/uL Hemoglobin 13.9 14.0-18.0 g/dL Hematocrit 39.9 42-52 % Mean Corpuscular Volume 88.7 80-100 fL Mean Corpuscular Hemoglobin 30.9 25-34 pg Mean Corpuscular Hemoglobin Concent 34.8 32-36 g/dl Platelet Count 110 130-400 K/uL Mean Platelet Volume 10.6 7.4-10.4 fL Neutrophils (%) (Auto) 66.2 % Lymphocytes (%) (Auto) 19.2 % Monocytes (%) (Auto) 12.7 % Eosinophils (%) (Auto) 1.4 % Basophils (%) (Auto) 0.3 % Neutrophils # (Auto) 5.74 1.4-6.5 K/uL Lymphocytes # (Auto) 1.67 1.2-3.4 K/uL Monocytes # (Auto) 1.10 0.11-0.59 K/uL Eosinophils # (Auto) 0.12 0-0.5 K/uL Basophils # (Auto) 0.03 0-0.2 K/uL RDW Standard Deviation 45.0 36.4-46.3 fL RDW Coefficient of Variation 13.8 11.5-14.5 % Immature Granulocyte % (Auto) 0.2 % Immature Granulocyte # (Auto) 0.02 0.00-0.02 K/uL Sodium Level 139 136-145 mmol/L Potassium Level 3.4 3.5-5.1 mmol/L Chloride Level 109 98-107 mmol/L Carbon Dioxide Level 25 21-32 mmol/L Anion Gap 5.0 3-11 mmol/L Blood Urea Nitrogen 18 7-18 mg/dl Creatinine 1.24 0.60-1.40 mg/dl Est Creatinine Clear Calc Drug Dose 46.6 ml/min Estimated GFR () 61.9 Estimated GFR (Non- 53.4 BUN/Creatinine Ratio 14.4 10-20 Random Glucose 96 70-99 mg/dl Calcium Level 8.4 8.5-10.1 mg/dl Total Bilirubin 1.1 0.2-1 mg/dl Aspartate Amino Transf (AST/SGOT) 50 15-37 U/L Alanine Aminotransferase (ALT/SGPT) 33 12-78 U/L Alkaline Phosphatase 64 45-117 U/L Total Protein 6.1 6.4-8.2 gm/dl Albumin 2.6 3.4-5.0 gm/dl Globulin 3.5 2.5-4.0 gm/dl Albumin/Globulin Ratio 0.7 0.9-2 Microbiology Results 08/26/17 Urine Culture, Received Pending
[2017-08-26] MEDS: AMOXICILLIN/CLAVULANATE TAB 875 MG TAB PO SCH (18:06)
[2017-08-26] MEDS: SIMVASTATIN 20 MG TAB PO SCH (21:01)
[2017-08-26] MEDS: LATANOPROST 0.005% OP SOLN 2.5 ML BTL OPB SCH (21:02)
[2017-08-26 22:02] VITALS: PULSE 81; O2SAT 92
[2017-08-26 23:03] VITALS: BP 142/84; PULSE 68; TEMP 37.2; O2SAT 96
[2017-08-27 05:54] LABS: BASO % 0.3 %; BASO ABS # 0.02 K/uL (0-0.2); EOS % 1.5 %; EOS ABS # 0.11 K/uL (0-0.5); HEMATOCRIT 40.2 % (42-52); HEMOGLOBIN 14.1 g/dL (14.0-18.0); IG# 0.02 K/uL (0.00-0.02); LYMPH % 15.6 %; LYMPH ABS # 1.11 K/uL (1.2-3.4); MEAN CELL VOLUME 89.1 fL (80-100); MEAN CORPUSCULAR HEMOGLOBIN 31.3 pg (25-34); MEAN CORPUSCULAR HGB CONC 35.1 g/dl (32-36); MEAN PLATELET VOLUME 10.1 fL (7.4-10.4); MONO % 14.5 %; MONO ABS # 1.03 K/uL (0.11-0.59); NEUT % 67.8 %; NEUT ABS # 4.83 K/uL (1.4-6.5); PLATELET COUNT 122 K/uL (130-400); RED CELL DISTRIBUTION WIDTH CV 13.7 % (11.5-14.5); RED CELL DISTRIBUTION WIDTH SD 44.5 fL (36.4-46.3); WHITE BLOOD COUNT 7.12 K/uL (4.8-10.8)
[2017-08-27 06:24] LABS: ALBUMIN 2.6 gm/dl (3.4-5.0); CALCIUM 8.2 mg/dl (8.5-10.1); POTASSIUM 3.7 mmol/L (3.5-5.1)
[2017-08-27 06:27] LABS: TOTAL PROTEIN 5.7 gm/dl (6.4-8.2)
[2017-08-27 07:36] VITALS: BP 118/78; PULSE 68; TEMP 36.9; O2SAT 97
[2017-08-27 08:00] VITALS: O2SAT 97
[2017-08-27] MEDS: TIMOLOL MALEATE 0.25% OP SOLN 5 ML BTL OPB SCH ×2 (08:00→20:38)
[2017-08-27] MEDS: DONEPEZIL HCL 10 MG TAB PO SCH (08:00)
[2017-08-27] MEDS: HYDROCHLOROTHIAZIDE 25 MG TAB PO SCH (08:01)
[2017-08-27] MEDS: AMOXICILLIN/CLAVULANATE TAB 875 MG TAB PO SCH ×2 (08:01→16:18)
[2017-08-27] MEDS: ASPIRIN 81 MG ECTAB PO SCH (08:01)
[2017-08-27] MEDS: AZITHROMYCIN 250 MG TAB PO SCH (08:02)
[2017-08-27] MEDS: MEMANTINE 5 MG TAB PO SCH ×2 (08:02→20:38)
[2017-08-27] MEDS: LISINOPRIL 5 MG TAB PO SCH (08:03)
--- NOTE | 2017-08-27 17:54 | Progress Note ---
Internal Med Progress Note Date of Service: August 27, 2017. Provider Documentation: SUBJECTIVE: Patient seen and examined in bedside. Denies acute pain. OBJECTIVE: Exam: General- no acute distress Eyes- EOMI Neck- no JVD Lungs-breathing on room air, clear to auscultation, no wheezing Heart - regular rate Abdomen- soft, nontender, + bowel sounds Extremities- no edema Neuro- awake, alert ASSESSMENT & PLAN: Patient is an 82-year-old male with a PMH of mixed Alzheimer's/vascular dementia , HTN, HLD, CKD III and h/o MRSA who presents after a fall at home. Sepsis secondary to pneumonia -In the ER pt meets sepsis criteria with elevated lactic acid, tachycardia, elevated WBC and RR. CXR done in the ER showed subsegmental left basilar alveolar opacities. Received IVF in the ER and IV abx with Rocephine and Vanco. His BP dropped in the 90's systolic. Was started on Zosyn IV. MRSA screen negative and so Vancomycin was stopped -admission CXR 08/24/17 1. Cardiomegaly with mild pulmonary vascular congestion and trace right pleural effusion. 2. Subsegmental left basilar alveolar opacities suggest atelectasis or pneumonia. -follow up CXR 08/25/17 1. Mild improvement in the patient's congestive failure. 2. Mild improvement of a left basilar infiltrative process. -Blood cultures from admission returned as negative, Zosyn stopped on 08/26/17 and patient transitioned to oral Augmentin and Azithromycin -Continue oral antibiotics for now Hypertension history -was Hypotensive secondary infection -Blood pressure Improved after IV fluids and antibiotics -home dose Lisinopril started on 08/26/17 Unwitnessed fall: -patient's reported that he was in bathroom when he fell down at home and was conscious when she found him -PT/OT evaluations -PT evaluation on 08/26/17 "recommending pt go to SNF for further inpt rehab. pt is not safe to be home at this time due to high fall risk" Alzheimer's/vascular dementia: Cont Aricept, Namenda, aspirin : duvall removed on 08/27/17, some incontinence today but no urinary retention HLD: Cont statin CKD III with DAVID resolved Thrombocytopenia: platelets have been stable Non-Hodgkin's lymphoma: Chemo in 2007 DVT Ppx: SCDs Code status: FULL Disposition: awaiting case management to obtain [facility] placement Vital Signs: Date Time Temp Pulse Resp B/P (MAP) Pulse Ox O2 Delivery O2 Flow Rate FiO2 08/27/17 08:00 97 Room Air 08/27/17 07:36 36.9 68 18 118/78 (91) 97 Room Air 08/27/17 00:00 CPAP 08/26/17 23:03 37.2 68 20 142/84 (103) 96 BiPAP 08/26/17 22:02 81 92 21 Lab Results: Results Past 24 Hours Test 08/27/17 05:36 Range/Units White Blood Count 7.12 4.8-10.8 K/uL Red Blood Count 4.51 4.7-6.1 M/uL Hemoglobin 14.1 14.0-18.0 g/dL Hematocrit 40.2 42-52 % Mean Corpuscular Volume 89.1 80-100 fL Mean Corpuscular Hemoglobin 31.3 25-34 pg Mean Corpuscular Hemoglobin Concent 35.1 32-36 g/dl Platelet Count 122 130-400 K/uL Mean Platelet Volume 10.1 7.4-10.4 fL Neutrophils (%) (Auto) 67.8 % Lymphocytes (%) (Auto) 15.6 % Monocytes (%) (Auto) 14.5 % Eosinophils (%) (Auto) 1.5 % Basophils (%) (Auto) 0.3 % Neutrophils # (Auto) 4.83 1.4-6.5 K/uL Lymphocytes # (Auto) 1.11 1.2-3.4 K/uL Monocytes # (Auto) 1.03 0.11-0.59 K/uL Eosinophils # (Auto) 0.11 0-0.5 K/uL Basophils # (Auto) 0.02 0-0.2 K/uL RDW Standard Deviation 44.5 36.4-46.3 fL RDW Coefficient of Variation 13.7 11.5-14.5 % Immature Granulocyte % (Auto) 0.3 % Immature Granulocyte # (Auto) 0.02 0.00-0.02 K/uL Sodium Level 140 136-145 mmol/L Potassium Level 3.7 3.5-5.1 mmol/L Chloride Level 106 98-107 mmol/L Carbon Dioxide Level 29 21-32 mmol/L Anion Gap 5.0 3-11 mmol/L Blood Urea Nitrogen 14 7-18 mg/dl Creatinine 1.00 0.60-1.40 mg/dl Est Creatinine Clear Calc Drug Dose 57.8 ml/min Estimated GFR () 80.3 Estimated GFR (Non- 69.3 BUN/Creatinine Ratio 13.5 10-20 Random Glucose 83 70-99 mg/dl Calcium Level 8.2 8.5-10.1 mg/dl Total Bilirubin 1.2 0.2-1 mg/dl Aspartate Amino Transf (AST/SGOT) 47 15-37 U/L Alanine Aminotransferase (ALT/SGPT) 37 12-78 U/L Alkaline Phosphatase 64 45-117 U/L Total Protein 5.7 6.4-8.2 gm/dl Albumin 2.6 3.4-5.0 gm/dl Globulin 3.1 2.5-4.0 gm/dl Albumin/Globulin Ratio 0.8 0.9-2
[2017-08-27] MEDS: SIMVASTATIN 20 MG TAB PO SCH (20:38)
[2017-08-27] MEDS: LATANOPROST 0.005% OP SOLN 2.5 ML BTL OPB SCH (20:38)
[2017-08-27 22:39] VITALS: PULSE 86; O2SAT 96
[2017-08-27 23:05] VITALS: BP 127/72; PULSE 69; TEMP 37.2; O2SAT 95
[2017-08-28 07:40] VITALS: BP 138/68; PULSE 68; TEMP 37; O2SAT 99
[2017-08-28] MEDS: AZITHROMYCIN 250 MG TAB PO SCH (08:34)
[2017-08-28] MEDS: AMOXICILLIN/CLAVULANATE TAB 875 MG TAB PO SCH ×2 (08:34→17:40)
[2017-08-28] MEDS: HYDROCHLOROTHIAZIDE 25 MG TAB PO SCH (08:34)
[2017-08-28] MEDS: DONEPEZIL HCL 10 MG TAB PO SCH (08:34)
[2017-08-28] MEDS: LISINOPRIL 5 MG TAB PO SCH (08:35)
[2017-08-28] MEDS: ASPIRIN 81 MG ECTAB PO SCH (08:35)
[2017-08-28] MEDS: TIMOLOL MALEATE 0.25% OP SOLN 5 ML BTL OPB SCH ×2 (08:36→20:32)
[2017-08-28] MEDS: MEMANTINE 5 MG TAB PO SCH ×2 (08:36→20:32)
--- NOTE | 2017-08-28 15:18 | Progress Note ---
Internal Med Progress Note Date of Service: August 28, 2017. Provider Documentation: SUBJECTIVE: Patient seen and examined in bedside. Denies acute pain. OBJECTIVE: Exam: General- no acute distress Eyes- EOMI Neck- no JVD Lungs-breathing on room air, clear to auscultation, no wheezing Heart - regular rate Abdomen- soft, nontender, + bowel sounds Extremities- no edema Neuro- awake, alert ASSESSMENT & PLAN: Patient is an 82-year-old male with a PMH of mixed Alzheimer's/vascular dementia , HTN, HLD, CKD III and h/o MRSA who presents after a fall at home. Sepsis secondary to pneumonia -In the ER pt meets sepsis criteria with elevated lactic acid, tachycardia, elevated WBC and RR. CXR done in the ER showed subsegmental left basilar alveolar opacities. Received IVF in the ER and IV abx with Rocephine and Vanco. His BP dropped in the 90's systolic. Was started on Zosyn IV. MRSA screen negative and so Vancomycin was stopped -admission CXR 08/24/17 1. Cardiomegaly with mild pulmonary vascular congestion and trace right pleural effusion. 2. Subsegmental left basilar alveolar opacities suggest atelectasis or pneumonia. -follow up CXR 08/25/17 1. Mild improvement in the patient's congestive failure. 2. Mild improvement of a left basilar infiltrative process. -Blood cultures from admission returned as negative, Zosyn stopped on 08/26/17 and patient transitioned to oral Augmentin and Azithromycin -Continue oral antibiotics for now, is now day 5 of total antibiotics Hypertension history -was Hypotensive secondary infection -Blood pressure Improved after IV fluids and antibiotics -home dose Lisinopril started on 08/26/17 Unwitnessed fall: -patient's reported that he was in bathroom when he fell down at home and was conscious when she found him -PT/OT evaluations -PT evaluation on 08/26/17 "recommending pt go to SNF for further inpt rehab. pt is not safe to be home at this time due to high fall risk" Alzheimer's/vascular dementia: Cont Aricept, Namenda, aspirin : duvall removed on 08/27/17, some incontinence today but no urinary retention HLD: Cont statin CKD III with DAVID resolved Thrombocytopenia: platelets have been stable Non-Hodgkin's lymphoma: Chemo in 2007 DVT Ppx: SCDs Code status: FULL Disposition: Patient doing well on oral antibiotics for pneumonia. Breathing on room air. Needs placement due to assessment of being a fall risk and benefits from physical therapy. Case Management checked bed availability for [facility] but no beds available at this time Vital Signs: Date Time Temp Pulse Resp B/P (MAP) Pulse Ox O2 Delivery O2 Flow Rate FiO2 08/28/17 08:20 Room Air 08/28/17 07:40 37.0 68 18 138/68 (91) 99 BiPAP 08/28/17 00:30 Room Air 08/27/17 23:05 37.2 69 20 127/72 (90) 95 Room Air 08/27/17 22:39 86 96 21 08/27/17 16:30 Room Air
[2017-08-28 16:15] VITALS: BP 127/79; PULSE 73; TEMP 37.1; O2SAT 93
--- NOTE | 2017-08-28 16:44 | DIAGNOSTIC IMAGING REPORT ---
CHEST 2 VIEWS ROUTINE CLINICAL HISTORY: 82 years-old Male presenting with follow up pneumonia x ray. TECHNIQUE: PA and lateral views of the chest were obtained. COMPARISON: 08/25/2017. FINDINGS: Atherosclerosis of the aortic arch. Cardiac silhouette top normal in size. Decreased pulmonary vascular prominence. Mildly low lung volumes. Trace right pleural effusion. Minimal bibasilar linear opacities. No pneumothorax. Degenerative changes of the thoracic spine. Upper abdomen normal. IMPRESSION: 1. Mildly low lung volumes with bibasilar atelectasis suspected. 2. Decreased pulmonary vascular prominence. 3. Trace right pleural effusion. Electronically signed by: Satish Rubin M.D. 08/28/2017 4:43 PM Dictated Date/Time: 08/28/2017 4:41 PM
[2017-08-28] MEDS: LATANOPROST 0.005% OP SOLN 2.5 ML BTL OPB SCH (20:32)
[2017-08-28] MEDS: SIMVASTATIN 20 MG TAB PO SCH (20:32)
[2017-08-28 22:19] VITALS: PULSE 76; O2SAT 95
[2017-08-28 23:29] VITALS: BP 146/85; PULSE 67; TEMP 36.7; O2SAT 97
[2017-08-29 08:02] VITALS: BP 142/82; PULSE 86; TEMP 36.9; O2SAT 96
[2017-08-29] MEDS: TIMOLOL MALEATE 0.25% OP SOLN 5 ML BTL OPB SCH ×2 (08:02→20:09)
[2017-08-29] MEDS: AMOXICILLIN/CLAVULANATE TAB 875 MG TAB PO SCH ×2 (08:03→16:32)
[2017-08-29] MEDS: MEMANTINE 5 MG TAB PO SCH ×2 (08:03→20:08)
[2017-08-29] MEDS: HYDROCHLOROTHIAZIDE 25 MG TAB PO SCH (08:03)
[2017-08-29] MEDS: ASPIRIN 81 MG ECTAB PO SCH (08:03)
[2017-08-29] MEDS: DONEPEZIL HCL 10 MG TAB PO SCH (08:03)
[2017-08-29] MEDS: LISINOPRIL 5 MG TAB PO SCH (08:04)
[2017-08-29] MEDS: AZITHROMYCIN 250 MG TAB PO SCH (08:04)
[2017-08-29 08:12] LABS: BASO % 0.3 %; BASO ABS # 0.03 K/uL (0-0.2); EOS % 2.4 %; EOS ABS # 0.21 K/uL (0-0.5); HEMATOCRIT 44.8 % (42-52); HEMOGLOBIN 15.3 g/dL (14.0-18.0); IG# 0.04 K/uL (0.00-0.02); LYMPH % 21.6 %; LYMPH ABS # 1.86 K/uL (1.2-3.4); MEAN CELL VOLUME 90.3 fL (80-100); MEAN CORPUSCULAR HEMOGLOBIN 30.8 pg (25-34); MEAN PLATELET VOLUME 9.8 fL (7.4-10.4); MONO % 12.3 %; MONO ABS # 1.06 K/uL (0.11-0.59); NEUT % 62.9 %; PLATELET COUNT 164 K/uL (130-400); RED CELL DISTRIBUTION WIDTH CV 13.9 % (11.5-14.5); RED CELL DISTRIBUTION WIDTH SD 45.5 fL (36.4-46.3)
[2017-08-29 08:16] LABS: MEAN CORPUSCULAR HGB CONC 34.2 g/dl (32-36)
[2017-08-29 08:33] LABS: ALBUMIN 3.1 gm/dl (3.4-5.0); CALCIUM 9.1 mg/dl (8.5-10.1); CREATININE 1.22 mg/dl (0.60-1.40); POTASSIUM 3.8 mmol/L (3.5-5.1)
--- NOTE | 2017-08-29 11:01 | Progress Note ---
Internal Med Progress Note Date of Service: August 29, 2017. Provider Documentation: SUBJECTIVE: Patient seen and examined in bedside. Denies acute pain. When seen this AM patient had some dry cough. Chest X ray from yesterday evening reviewed and nor worsening infiltrates OBJECTIVE: Exam: General- no acute distress Eyes- EOMI Neck- no JVD Lungs-breathing on room air, clear to auscultation, no wheezing Heart - regular rate Abdomen- soft, nontender, + bowel sounds Extremities- no edema Neuro- awake, alert ASSESSMENT & PLAN: Patient is an 82-year-old male with a PMH of mixed Alzheimer's/vascular dementia , HTN, HLD, CKD III and h/o MRSA who presents after a fall at home. Sepsis secondary to pneumonia -In the ER pt meets sepsis criteria with elevated lactic acid, tachycardia, elevated WBC and RR. CXR done in the ER showed subsegmental left basilar alveolar opacities. Received IVF in the ER and IV abx with Rocephine and Vanco. His BP dropped in the 90's systolic. Was started on Zosyn IV. MRSA screen negative and so Vancomycin was stopped -admission CXR 08/24/17 1. Cardiomegaly with mild pulmonary vascular congestion and trace right pleural effusion. 2. Subsegmental left basilar alveolar opacities suggest atelectasis or pneumonia. -follow up CXR 08/25/17 1. Mild improvement in the patient's congestive failure. 2. Mild improvement of a left basilar infiltrative process. -Blood cultures from admission returned as negative, Zosyn stopped on 08/26/17 and patient transitioned to oral Augmentin and Azithromycin CXR 08/28/17: Decreased pulmonary vascular prominence. Mildly low lung volumes. Trace right pleural effusion. Minimal bibasilar linear opacities. No pneumothorax. Degenerative changes of the thoracic spine. Upper abdomen normal -Continue oral antibiotics for now, is now day 6 of total antibiotics, continue for now -Have called patient's Candelaria Portillo [phone] to update that patient is ready for the completion of pneumonia antibiotics but it is possible that the dry cough may persist and recommended possible outpatient pulmonary function test to be set up by primary care doctor after discharge. Patient's informed that she would like patient to follow up with Dr. Gilbert rather than Dr. Mendoza. Have informed [facility] appointment line [phone] to update these changes Hypertension history -was Hypotensive secondary infection -Blood pressure Improved after IV fluids and antibiotics -home dose Lisinopril started on 08/26/17 Unwitnessed fall: -patient's reported that he was in bathroom when he fell down at home and was conscious when she found him -PT/OT evaluations -PT evaluation on 08/26/17 "recommending pt go to SNF for further inpt rehab. pt is not safe to be home at this time due to high fall risk" Alzheimer's/vascular dementia: Cont Aricept, Namenda, aspirin : duvall removed on 08/27/17 HLD: Cont statin CKD III with DAVID resolved Thrombocytopenia: platelets have been stable Non-Hodgkin's lymphoma: Chemo in 2007 DVT Ppx: SCDs Code status: FULL Disposition: Patient doing well on oral antibiotics for pneumonia. Breathing on room air. Have called patient's Candelaria Portillo [phone] to update that patient is ready for the completion of pneumonia antibiotics but it is possible that the dry cough may persist and recommended possible outpatient pulmonary function test to be set up by primary care doctor after discharge. Patient's informed that she would like patient to follow up with Dr. Gilbert rather than Dr. Mendoaz. Have informed [facility] appointment line [phone] to update these changes Expect that patient will be first seen by primary care doctor who works with [facility] when he is discharged. Needs placement due to assessment of being a fall risk and benefits from physical therapy. Case Management checked bed availability for today for [facility] but no beds until tomorrow Vital Signs: Date Time Temp Pulse Resp B/P (MAP) Pulse Ox O2 Delivery O2 Flow Rate FiO2 08/29/17 08:02 36.9 86 18 142/82 (102) 96 Room Air 08/29/17 08:00 Room Air 08/29/17 00:05 Room Air BiPAP 08/28/17 23:29 36.7 67 16 146/85 (105) 97 BiPAP 08/28/17 22:19 76 95 21 08/28/17 16:15 37.1 73 20 127/79 (95) 93 Room Air 08/28/17 16:00 Room Air Lab Results: Results Past 24 Hours Test 08/29/17 07:50 Range/Units White Blood Count 8.60 4.8-10.8 K/uL Red Blood Count 4.96 4.7-6.1 M/uL Hemoglobin 15.3 14.0-18.0 g/dL Hematocrit 44.8 42-52 % Mean Corpuscular Volume 90.3 80-100 fL Mean Corpuscular Hemoglobin 30.8 25-34 pg Mean Corpuscular Hemoglobin Concent 34.2 32-36 g/dl Platelet Count 164 130-400 K/uL Mean Platelet Volume 9.8 7.4-10.4 fL Neutrophils (%) (Auto) 62.9 % Lymphocytes (%) (Auto) 21.6 % Monocytes (%) (Auto) 12.3 % Eosinophils (%) (Auto) 2.4 % Basophils (%) (Auto) 0.3 % Neutrophils # (Auto) 5.40 1.4-6.5 K/uL Lymphocytes # (Auto) 1.86 1.2-3.4 K/uL Monocytes # (Auto) 1.06 0.11-0.59 K/uL Eosinophils # (Auto) 0.21 0-0.5 K/uL Basophils # (Auto) 0.03 0-0.2 K/uL RDW Standard Deviation 45.5 36.4-46.3 fL RDW Coefficient of Variation 13.9 11.5-14.5 % Immature Granulocyte % (Auto) 0.5 % Immature Granulocyte # (Auto) 0.04 0.00-0.02 K/uL Sodium Level 140 136-145 mmol/L Potassium Level 3.8 3.5-5.1 mmol/L Chloride Level 103 98-107 mmol/L Carbon Dioxide Level 31 21-32 mmol/L Anion Gap 6.0 3-11 mmol/L Blood Urea Nitrogen 18 7-18 mg/dl Creatinine 1.22 0.60-1.40 mg/dl Est Creatinine Clear Calc Drug Dose 47.4 ml/min Estimated GFR () 63.2 Estimated GFR (Non- 54.5 BUN/Creatinine Ratio 14.5 10-20 Random Glucose 91 70-99 mg/dl Calcium Level 9.1 8.5-10.1 mg/dl Total Bilirubin 0.9 0.2-1 mg/dl Aspartate Amino Transf (AST/SGOT) 60 15-37 U/L Alanine Aminotransferase (ALT/SGPT) 55 12-78 U/L Alkaline Phosphatase 74 45-117 U/L Total Protein 7.0 6.4-8.2 gm/dl Albumin 3.1 3.4-5.0 gm/dl Globulin 3.9 2.5-4.0 gm/dl Albumin/Globulin Ratio 0.8 0.9-2
[2017-08-29 16:12] VITALS: BP 127/70; PULSE 67; TEMP 37.2; O2SAT 97
[2017-08-29 18:00] VITALS: O2SAT 97
[2017-08-29] MEDS: SIMVASTATIN 20 MG TAB PO SCH (20:08)
[2017-08-29] MEDS: LATANOPROST 0.005% OP SOLN 2.5 ML BTL OPB SCH (20:09)
[2017-08-29 21:47] VITALS: PULSE 79; O2SAT 95
[2017-08-29 23:05] VITALS: BP 141/91; PULSE 80; TEMP 36.8; O2SAT 95
[2017-08-30 07:57] VITALS: BP 164/79; PULSE 67; TEMP 36.8; O2SAT 96
[2017-08-30 08:00] VITALS: O2SAT 96
[2017-08-30] MEDS: TIMOLOL MALEATE 0.25% OP SOLN 5 ML BTL OPB SCH (09:08)
[2017-08-30] MEDS: HYDROCHLOROTHIAZIDE 25 MG TAB PO SCH (09:08)
[2017-08-30] MEDS: MEMANTINE 5 MG TAB PO SCH (09:09)
[2017-08-30] MEDS: DONEPEZIL HCL 10 MG TAB PO SCH (09:09)
[2017-08-30] MEDS: ASPIRIN 81 MG ECTAB PO SCH (09:09)
[2017-08-30] MEDS: AZITHROMYCIN 250 MG TAB PO SCH (09:09)
[2017-08-30] MEDS: AMOXICILLIN/CLAVULANATE TAB 875 MG TAB PO SCH (09:10)
[2017-08-30] MEDS: LISINOPRIL 5 MG TAB PO SCH (09:10)
--- NOTE | 2017-08-30 11:12 | Progress Note ---
Internal Med Progress Note Date of Service: August 30, 2017. Provider Documentation: SUBJECTIVE: Patient seen and examined in bedside. Denies acute pain. When seen this AM patient had some dry cough. OBJECTIVE: Exam: General- no acute distress Eyes- EOMI Neck- no JVD Lungs-breathing on room air, clear to auscultation, no wheezing Heart - regular rate Abdomen- soft, nontender, + bowel sounds Extremities- no edema Neuro- awake, alert ASSESSMENT & PLAN: Hospital Course and Discharge Plan Patient is an 82-year-old male with a PMH of mixed Alzheimer's/vascular dementia , HTN, HLD, CKD III and h/o MRSA who presents after a fall at home. Sepsis secondary to pneumonia -In the ER pt meets sepsis criteria with elevated lactic acid, tachycardia, elevated WBC and RR. CXR done in the ER showed subsegmental left basilar alveolar opacities. Received IVF in the ER and IV abx with Rocephine and Vanco. His BP dropped in the 90's systolic. Was started on Zosyn IV. MRSA screen negative and so Vancomycin was stopped -admission CXR 08/24/17 1. Cardiomegaly with mild pulmonary vascular congestion and trace right pleural effusion. 2. Subsegmental left basilar alveolar opacities suggest atelectasis or pneumonia. -follow up CXR 08/25/17 1. Mild improvement in the patient's congestive failure. 2. Mild improvement of a left basilar infiltrative process. -Blood cultures from admission returned as negative, Zosyn stopped on 08/26/17 and patient transitioned to oral Augmentin and Azithromycin CXR 08/28/17: Decreased pulmonary vascular prominence. Mildly low lung volumes. Trace right pleural effusion. Minimal bibasilar linear opacities. No pneumothorax. Degenerative changes of the thoracic spine. Upper abdomen normal -Continue oral antibiotics for now, is now day 7 of total antibiotics, antibiotics can be stopped -Patient completed oral antibiotics for pneumonia and breathing on room air. Patient still have some dry cough. He may benefit from outpatient pulmonary function Hypertension history -was Hypotensive secondary infection -Blood pressure Improved after IV fluids and antibiotics -home dose Lisinopril started on 08/26/17 Unwitnessed fall: -patient's reported that he was in bathroom when he fell down at home and was conscious when she found him -PT/OT evaluations -PT evaluation on 08/26/17 "recommending pt go to SNF for further inpt rehab. pt is not safe to be home at this time due to high fall risk" Alzheimer's/vascular dementia: Cont Aricept, Namenda, aspirin : duvall removed on 08/27/17 HLD: Continue statin CKD III with DAVID resolved Thrombocytopenia: platelets have been stable Non-Hodgkin's lymphoma: Chemo in 2007 DVT Ppx: SCDs Code status: FULL Discharge Disposition and Instructions Patient to be discharged to [facility] Expect that patient will be first seen by primary care doctor who works with [facility] when he is discharged. Patient completed oral antibiotics for pneumonia and breathing on room air. Patient still have some dry cough. He may benefit from outpatient pulmonary function, This could be coordinated by primary care doctor at [facility] Have informed [facility] appointment line [phone] that patient's family would want him to follow up with Dr. Gilbert in the future rather than Dr. Mendoza Vital Signs: Date Time Temp Pulse Resp B/P (MAP) Pulse Ox O2 Delivery O2 Flow Rate FiO2 08/30/17 07:57 36.8 67 18 164/79 (107) 96 Room Air 08/30/17 00:05 Room Air BiPAP 08/29/17 23:05 36.8 80 20 141/91 (108) 95 BiPAP 08/29/17 21:47 79 95 21 08/29/17 18:00 97 Room Air BiPAP 08/29/17 16:12 37.2 67 16 127/70 (89) 97 Room Air
--- NOTE | 2017-08-30 11:15 | Discharge Instructions ---
Discharge Instructions Date of Service August 30, 2017. Admission Reason for Admission: Fall, Pna, Sepsis Discharge Discharge Diagnosis / Problem: Sepsis secondary to pneumonia Discharge Goals Goal(s): Improve function, Increase independence Activity Recommendations Activity Limitations: per Instructions/Follow-up section Shower/Bathe: no limitations Instructions / Follow-Up Instructions / Follow-Up Hospital Course and Discharge Plan Patient is an 82-year-old male with a PMH of mixed Alzheimer's/vascular dementia , HTN, HLD, CKD III and h/o MRSA who presents after a fall at home. Sepsis secondary to pneumonia -In the ER pt meets sepsis criteria with elevated lactic acid, tachycardia, elevated WBC and RR. CXR done in the ER showed subsegmental left basilar alveolar opacities. Received IVF in the ER and IV abx with Rocephine and Vanco. His BP dropped in the 90's systolic. Was started on Zosyn IV. MRSA screen negative and so Vancomycin was stopped -admission CXR 08/24/17 1. Cardiomegaly with mild pulmonary vascular congestion and trace right pleural effusion. 2. Subsegmental left basilar alveolar opacities suggest atelectasis or pneumonia. -follow up CXR 08/25/17 1. Mild improvement in the patient's congestive failure. 2. Mild improvement of a left basilar infiltrative process. -Blood cultures from admission returned as negative, Zosyn stopped on 08/26/17 and patient transitioned to oral Augmentin and Azithromycin CXR 08/28/17: Decreased pulmonary vascular prominence. Mildly low lung volumes. Trace right pleural effusion. Minimal bibasilar linear opacities. No pneumothorax. Degenerative changes of the thoracic spine. Upper abdomen normal -Continue oral antibiotics for now, is now day 7 of total antibiotics, antibiotics can be stopped -Patient completed oral antibiotics for pneumonia and breathing on room air. Patient still have some dry cough. He may benefit from outpatient pulmonary function Hypertension history -was Hypotensive secondary infection -Blood pressure Improved after IV fluids and antibiotics -home dose Lisinopril started on 08/26/17 Unwitnessed fall: -patient's reported that he was in bathroom when he fell down at home and was conscious when she found him -PT/OT evaluations -PT evaluation on 08/26/17 "recommending pt go to SNF for further inpt rehab. pt is not safe to be home at this time due to high fall risk" Alzheimer's/vascular dementia: Cont Aricept, Namenda, aspirin : jadiel removed on 08/27/17 HLD: Continue statin CKD III with DAVID resolved Thrombocytopenia: platelets have been stable Non-Hodgkin's lymphoma: Chemo in 2007 DVT Ppx: SCDs Code status: FULL Discharge Disposition and Instructions Patient to be discharged to [facility] Expect that patient will be first seen by primary care doctor who works with [facility] when he is discharged. Patient completed oral antibiotics for pneumonia and breathing on room air. Patient still have some dry cough. He may benefit from outpatient pulmonary function, This could be coordinated by primary care doctor at [facility] Have informed [facility] appointment line [phone] that patient's family would want him to follow up with Dr. Gilbert in the future rather than Dr. Mendoza Current Hospital Diet Patient's current hospital diet: AHA Diet (Heart Healthy) Discharge Diet Recommended Diet: AHA Diet (Heart Healthy) Pending Studies Studies pending at discharge: no Laboratory Results 08/29/17 07:50 Red Blood Count 4.96, Mean Corpuscular Volume 90.3, Mean Corpuscular Hemoglobin 30.8, Mean Corpuscular Hemoglobin Concent 34.2, Mean Platelet Volume 9.8, Neutrophils (%) (Auto) 62.9, Lymphocytes (%) (Auto) 21.6, Monocytes (%) (Auto) 12.3, Eosinophils (%) (Auto) 2.4, Basophils (%) (Auto) 0.3, Neutrophils # (Auto ) 5.40, Lymphocytes # (Auto) 1.86, Monocytes # (Auto) 1.06, Eosinophils # (Auto ) 0.21, Basophils # (Auto) 0.03 08/29/17 07:50 Test 08/24/17 00:00 08/24/17 17:45 08/24/17 18:56 08/24/17 19:00 Influenza Type A (RT-PCR) Neg for Influ A (NEG) Influenza Type B (RT-PCR) Neg for Influ B (NEG) Prothrombin Time 11.0 SECONDS (9.0-12.0) Prothromb Time International Ratio 1.0 (0.9-1.1) Activated Partial Thromboplast Time 32.2 SECONDS (21.0-31.0) Partial Thromboplastin Ratio 1.2 Direct Bilirubin 0.2 mg/dl (0-0.2) Total Creatine Kinase 238 U/L (39-308) Creatine Kinase MB 2.3 ng/ml (0.5-3.6) Creatine Kinase MB Ratio 1.0 (0-3.0) Troponin I 0.015 ng/ml (0-0.045) Lipase 132 U/L (73-393) Bedside Lactic Acid Venous 2.34 mmol/L (0.90-1.70) Influenza Type A Antigen Neg for Influ A (NEG) Influenza Type B Antigen Neg for Influ B (NEG) Test 08/24/17 20:30 08/24/17 21:29 08/26/17 02:50 08/29/17 07:50 Urine Pathogenic Casts 0-3 GRANULAR CASTS /lpf (0) Lactic Acid Level 1.6 mmol/L (0.4-2.0) Procalcitonin 0.24 ng/ml (0-0.5) Urine Color RED Urine Appearance CLOUDY (CLEAR) Urine pH 5.0 (4.5-7.5) Urine Specific [place] 1.021 (1.000-1.030) Urine Protein 2+ (NEG) Urine Glucose (UA) NEG (NEG) Urine Ketones TRACE (NEG) Urine Occult Blood 3+ (NEG) Urine Nitrite NEG (NEG) Urine Bilirubin NEG (NEG) Urine Urobilinogen NEG (NEG) Urine Leukocyte Esterase TRACE (NEG) Urine WBC (Auto) 5-10 /hpf (0-5) Urine RBC (Auto) >30 /hpf (0-4) Urine Hyaline Casts (Auto) 1-5 /lpf (0-5) Urine Epithelial Cells (Auto) 20-30 /lpf (0-5) Urine Bacteria (Auto) NEG (NEG) White Blood Count 8.60 K/uL (4.8-10.8) Red Blood Count 4.96 M/uL (4.7-6.1) Hemoglobin 15.3 g/dL (14.0-18.0) Hematocrit 44.8 % (42-52) Mean Corpuscular Volume 90.3 fL (80-100) Mean Corpuscular Hemoglobin 30.8 pg (25-34) Mean Corpuscular Hemoglobin Concent 34.2 g/dl (32-36) Platelet Count 164 K/uL (130-400) Mean Platelet Volume 9.8 fL (7.4-10.4) Neutrophils (%) (Auto) 62.9 % Lymphocytes (%) (Auto) 21.6 % Monocytes (%) (Auto) 12.3 % Eosinophils (%) (Auto) 2.4 % Basophils (%) (Auto) 0.3 % Neutrophils # (Auto) 5.40 K/uL (1.4-6.5) Lymphocytes # (Auto) 1.86 K/uL (1.2-3.4) Monocytes # (Auto) 1.06 K/uL (0.11-0.59) Eosinophils # (Auto) 0.21 K/uL (0-0.5) Basophils # (Auto) 0.03 K/uL (0-0.2) RDW Standard Deviation 45.5 fL (36.4-46.3) RDW Coefficient of Variation 13.9 % (11.5-14.5) Immature Granulocyte % (Auto) 0.5 % Immature Granulocyte # (Auto) 0.04 K/uL (0.00-0.02) Anion Gap 6.0 mmol/L (3-11) Est Creatinine Clear Calc Drug Dose 47.4 ml/min Estimated GFR () 63.2 Estimated GFR (Non- 54.5 BUN/Creatinine Ratio 14.5 (10-20) Calcium Level 9.1 mg/dl (8.5-10.1) Total Bilirubin 0.9 mg/dl (0.2-1) Aspartate Amino Transf (AST/SGOT) 60 U/L (15-37) Alanine Aminotransferase (ALT/SGPT) 55 U/L (12-78) Alkaline Phosphatase 74 U/L (45-117) Total Protein 7.0 gm/dl (6.4-8.2) Albumin 3.1 gm/dl (3.4-5.0) Globulin 3.9 gm/dl (2.5-4.0) Albumin/Globulin Ratio 0.8 (0.9-2) Date/Time Source Procedure Growth Status 08/24/17 19:20 Blood Blood Culture - Final NO GROWTH Complete 08/24/17 23:25 Nasal MRSA DNA Surveillance Screen - Final Specimen Negative for MRSA by DNA Probe Complete 08/26/17 02:50 Urine , Clean Catch Urine Culture - Final NO GROWTH - LESS THAN 1,000 COLONIES/ML Complete Medical Emergencies . Who to Call and When: Medical Emergencies: If at any time you feel your situation is an emergency, please call 911 immediately. . Non-Emergent Contact Non-Emergency issues call your: Primary Care Provider Call Non-Emergent contact if: you have any medication questions . . "Provider Documentation" section prepared by Rashaun Brown. .
--- NOTE | 2017-08-30 11:23 | Discharge Summary ---
Discharge Summary Date of Service August 30, 2017. Discharge Summary Admission Date: August 24, 2017 at 21:27 Discharge Date: August 30, 2017 Discharge Disposition: Acute care facility ([facility]) Principal Diagnosis: Sepsis secondary to pneumonia Secondary Diagnoses/Problems: DAVID resolved, CKD, Thrombocytopenia Medication Reconciliation Continued Medications: Aspirin (Aspirin Ec) 81 Mg Tab 81 MG PO DAILY Donepezil HCl (Donepezil HCl) 10 Mg Tab 10 MG PO DAILY Fish Oil ([place]-3) 1 Ea Cap 1 CAP PO DAILY, CAP Hydrochlorothiazide (Hctz) 12.5 Mg Cap 12.5 MG PO DAILY Latanoprost (Latanoprost) 37 Drops/2.5 Ml Soln 1 DROP OPB HS Lisinopril (Zestril) 5 Mg Tab 5 MG PO DAILY, TAB Memantine HCl (Memantine HCl) 5 Mg Tab 5 MG PO BID Multivitamins/Minerals (Mvi With Minerals) Tab 1 TAB PO DAILY, TAB Simvastatin (Zocor) 20 Mg Tab 20 MG PO QPM, TAB Timolol Maleate (Timolol Maleate) 148 Drops/10 Ml Soln 1 DROP OPB BID Discontinued Medications: Misc Natural Products (Pumpkin Seed Oil) 1 Cap Cap 1 CAP PO DAILY Saw [place] ([place]ren[place] Repens) (Saw [place]) 160 Mg Cap 1 TABS PO DAILY Admission Information HPI (per Admitting provider): Patient is an 82-year-old male with a PMH of mixed Alzheimer's/vascular dementia , HTN, HLD, CKD III and h/o MRSA infections who presents after a fall at home. History obtained primarily from at bedside. Patient has had a cough and congestion since the beginning of July. Was seen in clinic on the and was diagnosed with complicated bronchitis and sent home with albuterol inhaler, prednisone taper and a 10 day course of doxycycline. Patient completed steroid and antibiotic last week and was feeling better. Per , patient has seemed fatigued the past 2 days and continued to have a mildly productive cough and generalized weakness. While patient was using the bathroom this afternoon, heard a loud thump and found patient lying on his side next to the toilet. Patient does not remember this incident. EMS was called and patient was brought to ED for further evaluation. In ED, patient found to have a fever of 101. Initially hypertensive at 181/109 and then hypotensive with SBP in the high 80s. Tachycardic at 122. Hypoxic ~88 -90% on room air. Does not require oxygen at home. Leukocytosis of 15.49 and lactic acid mildly elevated at 2.3. Aggressive IV fluid resuscitation administered. Chest x-ray with evidence of left lobe pneumonia versus atelectasis. Patient denies fever, chills, lightheadedness, dizziness, confusion, visual changes, chest pain, S OB, abdominal pain, nausea, pain, bowel or bladder changes or LE swelling. Physical Exam (per Admitting): General Appearance: WD/WN, no apparent distress, + pertinent finding (Non- toxic appearing ) Head: normocephalic, atraumatic Eyes: normal inspection, PERRL, sclerae normal ENT: normal ENT inspection, hearing grossly normal, pharynx normal (moist mucous membranes ) Neck: supple, thyroid normal, trachea midline Respiratory/Chest: chest non-tender, lungs clear, no respiratory distress, no accessory muscle use, + decreased breath sounds Cardiovascular: no murmur, normal peripheral pulses, + tachycardia Abdomen/GI: non tender, soft, no organomegaly Back: normal inspection Extremities/Musculoskelatal: normal inspection, no calf tenderness, no pedal edema Neurologic/Psych: no motor/sensory deficits, alert, normal mood/affect, oriented x 3 Skin: normal color, warm/dry Hospital Course Hospital Course and Discharge Plan Patient is an 82-year-old male with a PMH of mixed Alzheimer's/vascular dementia , HTN, HLD, CKD III and h/o MRSA who presents after a fall at home. Sepsis secondary to pneumonia -In the ER pt meets sepsis criteria with elevated lactic acid, tachycardia, elevated WBC and RR. CXR done in the ER showed subsegmental left basilar alveolar opacities. Received IVF in the ER and IV abx with Rocephine and Vanco. His BP dropped in the 90's systolic. Was started on Zosyn IV. MRSA screen negative and so Vancomycin was stopped -admission CXR 08/24/17 1. Cardiomegaly with mild pulmonary vascular congestion and trace right pleural effusion. 2. Subsegmental left basilar alveolar opacities suggest atelectasis or pneumonia. -follow up CXR 08/25/17 1. Mild improvement in the patient's congestive failure. 2. Mild improvement of a left basilar infiltrative process. -Blood cultures from admission returned as negative, Zosyn stopped on 08/26/17 and patient transitioned to oral Augmentin and Azithromycin CXR 08/28/17: Decreased pulmonary vascular prominence. Mildly low lung volumes. Trace right pleural effusion. Minimal bibasilar linear opacities. No pneumothorax. Degenerative changes of the thoracic spine. Upper abdomen normal -Continue oral antibiotics for now, is now day 7 of total antibiotics, antibiotics can be stopped -Patient completed oral antibiotics for pneumonia and breathing on room air. Patient still have some dry cough. He may benefit from outpatient pulmonary function Hypertension history -was Hypotensive secondary infection -Blood pressure Improved after IV fluids and antibiotics -home dose Lisinopril started on 08/26/17 Unwitnessed fall: -patient's reported that he was in bathroom when he fell down at home and was conscious when she found him -PT/OT evaluations -PT evaluation on 08/26/17 "recommending pt go to SNF for further inpt rehab. pt is not safe to be home at this time due to high fall risk" Alzheimer's/vascular dementia: Cont Aricept, Namenda, aspirin : duvall removed on 08/27/17 HLD: Continue statin CKD III with DAVID resolved Thrombocytopenia: platelets have been stable Non-Hodgkin's lymphoma: Chemo in 2007 DVT Ppx: SCDs Code status: FULL Discharge Disposition and Instructions Patient to be discharged to [facility] Expect that patient will be first seen by primary care doctor who works with [facility] when he is discharged. Patient completed oral antibiotics for pneumonia and breathing on room air. Patient still have some dry cough. He may benefit from outpatient pulmonary function, This could be coordinated by primary care doctor at [facility] Have informed [facility] appointment line [phone] that patient's family would want him to follow up with Dr. Gilbert in the future rather than Dr. Mendoza Total time spent on discharge = 40 minutes This includes examination of the patient, discharge planning, medication reconciliation, and communication with other providers. Discharge Instructions see above
[2017-08-30 12:31] VITALS: BP 164/79; PULSE 67; TEMP 36.8; O2SAT 96
== END 2017-08-30 15:32 | DRG 871 ==
LOC: EDBD 18:26 → C.EDB 18:27 → C.MSICU 21:27 → ENRESERV 21:44 → C.2T 08-25 15:06 → ENRESERV 08-26 11:35 → CANRESERV 08-26 11:35 → ENRESERV 08-26 11:40 → C.MS4W 08-26 14:08 → C.4E 08-26 16:27
PROVIDERS: ADMIT Internal Medicine; ATTEND Hospitalist
DX: A41.9 Sepsis, unspecified organism (principal); J18.9 Pneumonia, unspecified organism; N17.9 Acute kidney failure, unspecified; C85.90 Non-Hodgkin lymphoma, unspecified, unspecified site; I11.9 Hypertensive heart disease without heart failure; E78.5 Hyperlipidemia, unspecified; G30.9 Alzheimer's disease, unspecified; F02.80 Dementia in other diseases classified elsewhere, unspecified severity, without behavioral disturbance, psychotic disturbance, mood disturbance, and anxiety; G47.31 Primary central sleep apnea; N18.3 Chronic kidney disease, stage 3 (moderate); F01.50 Vascular dementia, unspecified severity, without behavioral disturbance, psychotic disturbance, mood disturbance, and anxiety; D69.6 Thrombocytopenia, unspecified; W19.XXXA Unspecified fall, initial encounter; Z91.81 History of falling; Z87.01 Personal history of pneumonia (recurrent); Z88.2 Allergy status to sulfonamides; Z86.14 Personal history of Methicillin resistant Staphylococcus aureus infection; Z79.82 Long term (current) use of aspirin; Z80.9 Family history of malignant neoplasm, unspecified